=== PATIENT | male | born 1955 | race Hispanic/Latino ===

== ENCOUNTER 2018-06-17 16:55 | Observation (INO) | payer OTHER ==
[~2018-06-17] VITALS: Ht 162.6 cm; Wt 80.0 kg
[~2018-06-17 16:55] MED LIST: AMLODIPINE BESYL5 MG PO; BACTRIM DS TAB1 EACH PO; CLINDAMYCIN HC300 MG PO; FOSINOPRIL SODI; FOSINOPRIL SODI10 MG PO; LEVOTHYROXINE50 MCG PO; NABUMETONE500 MG PO; NOVOLIN 70100 UNITS/ SC; RELION NOV100 UNIT/2; Z.0.ACTOS30 MG; Z.0.NORVASC10 MG; ZYRTEC5 M2
[2018-06-17 17:55] LABS: BASOPHILS % 0.6 % (0.0-1.0); EOSINOPHILS # (AUTO) 0.5 (0.0-0.4); EOSINOPHILS % 8.1 % (0.0-6.0); HEMATOCRIT 45.2 % (38.2-49.6); HEMOGLOBIN 15.2 g/dL (14.0-18.0); LYMPHOCYTES # (AUTO) 1.9 (1.0-3.2); LYMPHOCYTES % 29.5 % (18.0-39.1); MEAN CORPUSCULAR HEMOGLOBIN 30.5 pg (28-32); MEAN CORPUSCULAR HGB CONC 33.6 g/dL (31-35); MEAN CORPUSCULAR VOLUME 90.8 fL (81-99); MONOCYTES # (AUTO) 0.8 (0.2-0.8); MONOCYTES % 12.3 % (4.4-11.3); NEUTROPHILS # (AUTO) 3.2 (2.1-6.9); NEUTROPHILS % 49.2 % (38.7-80.0); PLATELET COUNT 302 x10e3/uL (140-360); RED BLOOD COUNT 4.98 x10e6/uL (4.3-5.7); RED CELL DISTRIBUTION WIDTH 12.4 % (11.7-14.4)
[2018-06-17 18:06] LABS: INR 0.81
[2018-06-17 18:07] LABS: PARTIAL THROMBOPLASTIN TIME 28.3 seconds (23.8-35.5)
[2018-06-17 18:11] LABS: ALBUMIN 3.7 g/dL (3.5-5.0); ALBUMIN/GLOBULIN RATIO 0.9 (0.8-2.0); ANION GAP 16.1 mmol/L (8-16); CALCIUM 9.9 mg/dL (8.4-10.2); CREATININE, SERUM 1.62 mg/dL (0.72-1.25); POTASSIUM 4.1 mmol/L (3.5-5.1)
[2018-06-17 18:24] LABS: CREATINE KINASE MB 6.9 ng/mL (0-5.0)
[2018-06-17] MEDS ORDERED: LISINOPRIL2.5 MG PO (19:06)
[2018-06-17] MEDS ORDERED: GABAPENTIN300 MG PO (19:08)
[2018-06-17] MEDS ORDERED: SODIUM CHLORIDE 0.9% 1000ML 1,000 ML IV SCH (19:16)
--- NOTE | 2018-06-17 19:17 | Diagnostic Imaging Report ---
EXAMINATION: CHEST SINGLE (PORTABLE) INDICATION: Chest pressure. COMPARISON: None FINDINGS: AP view TUBES and LINES: None. LUNGS: Lungs are well inflated. Lungs are clear. There is no evidence of pneumonia or pulmonary edema. PLEURA: No pleural effusion or pneumothorax. HEART AND MEDIASTINUM: The cardiomediastinal silhouette is unremarkable. BONES AND SOFT TISSUES: No acute osseous lesion. Soft tissues are unremarkable. UPPER ABDOMEN: No free air under the diaphragm. IMPRESSION: No acute thoracic abnormality. Signed by: Dr. Lisandro Bowers M.D. on 06/17/2018 7:14 PM
[2018-06-17] MEDS ORDERED: MORPHINE SULFATE 2 MG/ML SYR IV PRN (19:30)
[2018-06-17] MEDS ORDERED: HYDRALAZINE HCL 20 MG/ML VIAL IV PRN (19:30)
[2018-06-17] MEDS ORDERED: ONDANSETRON HCL INJ 2 MG/ML VIAL IV PRN (19:30)
[2018-06-17] MEDS: SODIUM CHLORIDE 0.45% 1,000 ML IV SCH (20:18)
[2018-06-17] MEDS: METOPROLOL TARTRATE 25 MG TAB PO SCH (20:35)
[2018-06-17] MEDS: INSULIN LISPRO 100 UNIT/1 ML 3ML VIAL SQ SCH (21:23)
[2018-06-17 23:15] VITALS: BP 155/83
[2018-06-18 01:53] VITALS: BP 155/83
[2018-06-18] MEDS: SODIUM CHLORIDE 0.45% 1,000 ML IV SCH (02:59)
[2018-06-18 04:00] VITALS: BP 158/91
[2018-06-18 05:47] LABS: BASOPHILS # (AUTO) 0.1 (0.0-0.1); BASOPHILS % 0.7 % (0.0-1.0); EOSINOPHILS # (AUTO) 0.5 (0.0-0.4); EOSINOPHILS % 7.7 % (0.0-6.0); HEMATOCRIT 38.5 % (38.2-49.6); HEMOGLOBIN 12.8 g/dL (14.0-18.0); LYMPHOCYTES # (AUTO) 2.3 (1.0-3.2); LYMPHOCYTES % 34.5 % (18.0-39.1); MEAN CORPUSCULAR HEMOGLOBIN 30.1 pg (28-32); MEAN CORPUSCULAR HGB CONC 33.2 g/dL (31-35); MEAN CORPUSCULAR VOLUME 90.6 fL (81-99); MONOCYTES # (AUTO) 0.9 (0.2-0.8); MONOCYTES % 13.1 % (4.4-11.3); NEUTROPHILS # (AUTO) 2.9 (2.1-6.9); NEUTROPHILS % 43.9 % (38.7-80.0); PLATELET COUNT 258 x10e3/uL (140-360); RED BLOOD COUNT 4.25 x10e6/uL (4.3-5.7); RED CELL DISTRIBUTION WIDTH 12.5 % (11.7-14.4)
[2018-06-18 06:14] LABS: ALBUMIN 2.9 g/dL (3.5-5.0); ANION GAP 12.7 mmol/L (8-16); BILIRUBIN,DIRECT 0.1 mg/dL (0.0-0.5); CALCIUM 9.2 mg/dL (8.4-10.2); CHOL/HDL RATIO 7.5 (3.9-4.7); CREATININE, SERUM 1.45 mg/dL (0.72-1.25); MAGNESIUM 1.7 MG/DL (1.3-2.1); POTASSIUM 3.7 mmol/L (3.5-5.1)
[2018-06-18 06:35] LABS: THYROID STIMULATING HORMONE 3.024 uIU/mL (0.350-4.940)
[2018-06-18] MEDS ORDERED: PNEUMOCOCCAL VACCINE POLYVALENT 23 MCG/0.5 ML VIAL IM ONE (07:00)
[2018-06-18] MEDS: INSULIN LISPRO 100 UNIT/1 ML 3ML VIAL SQ SCH ×2 (07:30→11:30)
[2018-06-18 08:27] VITALS: BP 145/82
[2018-06-18] MEDS ORDERED: ASPIRIN 325 MG TAB PO SCH (09:00)
[2018-06-18] MEDS: METOPROLOL TARTRATE 25 MG TAB PO SCH (09:39)
[2018-06-18 09:40] VITALS: BP 145/82
[2018-06-18] MEDS ORDERED: PRAVASTATIN SOD20 MG PO (12:08)
--- NOTE | 2018-06-18 12:56 | Discharge Summary ---
PRIMARY CARE DOCTOR: Dr. Rasta Garay FINAL DIAGNOSIS: Atypical chest pain. SECONDARY DIAGNOSES 1. Diabetes. 2. Stage 3 chronic kidney disease, stable. 3. Hypertension. CONSULTANTS: None. PROCEDURES/STUDIES PERFORMED: Echocardiogram, which was unremarkable. HISTORY: Per [facility] HOSPITAL COURSE: The patient was monitored overnight without any significant arrhythmia. His repeat troponin is still negative; therefore, there is no acute myocardial infarction. Patient did have a CK of 622; however, he denies any muscle pain or trauma nor injury. With gentle hydration, it came down to 329. His CK/MB was only 6.9. With titration, his creatinine went from 1.6 to 1.45. Patient was informed that he has about 40 to 50% of his kidney function, given his history is pretty atypical as far as his chest pain. At this time, I do not see an urgent need for a stress test. Patient will follow up with his primary care doctor and also see his patient placement coordinator to see if an outpatient stress test is indicated. I have considered the pulmonary embolism as an etiology. His D-dimer was negative given his pretest probability was low and this essentially ruled him out for pulmonary embolism. Patient was seen and examined today. His LDL is 170. His triglyceride is 154. His TSH is normal. I will go ahead and add a statin to his home medications. CONDITION ON DISCHARGE: Stable. DISCHARGE MEDICATIONS: Please see medication reconciliation form. NBA ALEJANDRE M.D. Job#: [id number] VONNIE cc:DR. RASTA GARAY
== END 2018-06-18 13:48 | disposition home or self-care (01) ==
LOC: ER 16:55 → ERHOLD 19:16 → MED/SURG 23:14
PROVIDERS: ADMIT Internal Medicine; ATTEND Internal Medicine
DX: R07.89 Other chest pain (principal); I12.9 Hypertensive chronic kidney disease with stage 1 through stage 4 chronic kidney disease, or unspecified chronic kidney disease; N18.3 Chronic kidney disease, stage 3 (moderate); E11.22 Type 2 diabetes mellitus with diabetic chronic kidney disease; Z82.49 Family history of ischemic heart disease and other diseases of the circulatory system; Z91.048 Other nonmedicinal substance allergy status
CPT/HCPCS: 36415 ×2; 71045; 80048; 80053; 80061; 80076; 82150; 82550 ×2; 82553; 82948 ×2; 83690; 83735; 83880; 84443; 84484 ×2; 85025 ×2; 85379; 85610; 85730; 90732; 93005; 93306; 99284; G0378 ×2; J7030